=== PATIENT | female | born 1960 | race Caucasian/White ===

== ENCOUNTER 2017-05-01 20:09 | Emergency (ER) | payer MEDICARE ==
[~2017-05-01] VITALS: Ht 157.5 cm; Wt 108.0 kg
[~2017-05-01 20:09] MED LIST: ACETAMINOPHEN325 M1; ALDACTONE25 MG; AMBEREN; BACTRIM DS TAB1 EACH; CELEXA40 MG; CETIRIZINE HCL10 M1 PO; COUMADIN 1MG TAB1 M1; CYMBALTA30 MG PO; CYMBALTA60 MG PO; FLEXERIL; HYDROCODONE-AP1 EAC6 PO; IBUPROFEN 800800 M1 PO; LEVAQUIN 500 M500 M2 PO; LOPRESSOR50 PO; LYRICA 75 MG CA75 MG PO; MEDROLDOSEPACK PO; NEURONTIN 300300 M1; OMEPRAZOLE40 MG; OSELB75 PO; OXYCONTIN20 M1; PRAZOSIN 1 MG CA1 M1 PO; PRAZOSIN HCL2 MG PO; ROXICODONE5 M1; SEROQUEL XR50 MG PO; TOPROL XL50 MG; TRANSDERM-SCO1 PATC1; VALIUM5 MG; VENTOLIN HFA 1818 GM INH; VITAMINC500; VOLTAREN GEL 1100 G2; XANAX 0.5 MG0.5 M1; ZYRTEC10 M2
[2017-05-01] MEDS ORDERED: MUCINEX1200 MG (20:19)
[2017-05-01] MEDS ORDERED: PREDNISONE50 MG (20:19)
[2017-05-01] MEDS ORDERED: DOXYCYCLINE 10100 MG (20:19)
[2017-05-01 22:46] LABS: ABSOLUTE BASOPHILS 0.1 thou/uL (0.0-0.2); ABSOLUTE LYMPHOCYTES 4.5 thou/uL (0.8-5.3); ABSOLUTE MONOCYTES 1.4 thou/uL (0.0-1.2); ABSOLUTE NEUTROPHILS 9.3 thou/uL (1.6-8.1); BASOPHILS 0.7 %; HEMATOCRIT 38.2 % (37.0-47.0); HEMOGLOBIN 12.8 gm/dL (12.0-15.0); LYMPHOCYTES 29.4 %; MCH 28.7 pg (26.0-34.0); MCHC 33.5 g/dL (28.0-37.0); MCV 85.5 fL (80.0-100.0); MONOCYTES 9.4 %; MPV 8.2 fl. (7.2-11.1); NUCLEATED RBCS 0 /100WBC; PLATELET COUNT* 310 thou/uL (150-400); POLYS 60.5 %; RBC 4.47 mil/uL (4.20-5.00); RDW-CV 13.9 % (10.5-14.5); WBC 15.3 thou/uL (4.0-11.0)
[2017-05-01 22:52] LABS: INFLUENZA A ANTIGEN None Detected (None Detect); INFLUENZA B ANTIGEN None Detected (None Detect)
[2017-05-01] MEDS ORDERED: NORCO 5-325 TA1 EAC1 PO (23:25)
[2017-05-01] MEDS ORDERED: TESSALON PERLE100 MG PO (23:26)
[2017-05-01 23:28] LABS: ALBUMIN 3.6 g/dL (3.4-5.0); CREATININE 1.3 mg/dL (0.6-1.3); POTASSIUM 3.3 mmol/L (3.5-5.1); TOTAL BILIRUBIN 0.3 mg/dL (<0.1-1.0); TOTAL PROTEIN 7.4 g/dL (6.4-8.2)
[2017-05-01 23:35] VITALS: BP 128/64
== END 2017-05-01 23:35 | disposition home or self-care (01) ==
LOC: M.ERS 20:09
PROVIDERS: Physician Assistant
DX: B34.9 Viral infection, unspecified (principal); M79.7 Fibromyalgia; F31.9 Bipolar disorder, unspecified; Z85.3 Personal history of malignant neoplasm of breast; Z88.2 Allergy status to sulfonamides; Z88.5 Allergy status to narcotic agent; Z88.8 Allergy status to other drugs, medicaments and biological substances

== ENCOUNTER → 2018-07-31 | Outpatient (CLI) | payer MEDICARE, OTHER ==
[~2018-07-31] MED LIST changes: +DOXYCYCLINE 10100 MG; +MUCINEX1200 MG; +NORCO 5-325 TA1 EAC1 PO; +PREDNISONE50 MG; +TESSALON PERLE100 MG PO
[2018-07-31 08:34] LABS: CALCIUM 8.6 mg/dL (8.5-10.1); CREATININE 1.1 mg/dL (0.6-1.3)
== END ==
LOC: M.LAB 07:58 → M.CT 10:15 → M.NUC 10:15 → M.CT 10:30 → M.NUC 11:15
PROVIDERS: Internal Medicine Hematology & Oncology
DX: M19.011 Primary osteoarthritis, right shoulder (principal); M19.012 Primary osteoarthritis, left shoulder; R91.8 Other nonspecific abnormal finding of lung field; R97.8 Other abnormal tumor markers; Z85.3 Personal history of malignant neoplasm of breast; Z90.49 Acquired absence of other specified parts of digestive tract

== ENCOUNTER → 2018-11-06 | Outpatient (CLI) | payer MEDICARE, OTHER | LOC: M.CT 10:31 | DX: R91.8 Other nonspecific abnormal finding of lung field (principal); E04.9 Nontoxic goiter, unspecified; R97.8 Other abnormal tumor markers; Z85.3 Personal history of malignant neoplasm of breast ==

== ENCOUNTER → 2021-05-14 | Outpatient (CLI) | payer MEDICARE | LOC: M.LAB 12:22 | PROVIDERS: ATTEND Internal Medicine Gastroenterology | DX: Z01.812 Encounter for preprocedural laboratory examination (principal); Z20.822 Contact with and (suspected) exposure to COVID-19 ==